=== PATIENT | female | born 1975 | race African-American/Black ===

== ENCOUNTER 2016-10-18 09:33 | Emergency (ER) | payer MEDICAID ==
[2016-10-18] MEDS ORDERED: MORPHINE 4 MG/ML SYR ONE (10:35)
[2016-10-18] MEDS ORDERED: ONDANSETRON ODT 4 MG TAB ONE (10:35)
[2016-10-18] MEDS ORDERED: ORPHENADRINE 60 MG/2 ML AMP ONE (10:35)
[2016-10-18] MEDS ORDERED: DIPHENHYDRAMINE 25 MG CAP ONE (11:25)
== END 2016-10-18 12:17 | disposition home or self-care (01) ==
LOC: ER 09:33
CPT/HCPCS: 72050; 96372